=== PATIENT | female | born 1970 ===

== ENCOUNTER 2020-10-05 07:00 | Inpatient (IN) | payer OTHER ==
[~2020-10-05] VITALS: Ht 165.1 cm; Wt 77.6 kg
[2020-10-31] MEDS ORDERED: LANOXIN125 MCG PO (15:02)
[2020-10-31] MEDS ORDERED: SINGULAIR10 MG PO (15:03)
[2020-11-07] MEDS ORDERED: CEFADROXIL500 MG PO (06:45)
[2020-11-07] MEDS ORDERED: SIMETHICONE125 M1 PO (06:45)
[2020-11-07] MEDS ORDERED: POLY119PG PO (06:45)
[2020-11-07] MEDS ORDERED: INTEGRA PLUS C1 EACH PO (06:45)
[2020-11-07] MEDS ORDERED: IBUPROFEN800 MG PO (06:45)
[2020-11-07] MEDS ORDERED: NEURONTIN600 MG PO (06:45)
== END 2020-11-07 10:52 | disposition home or self-care (01) | DRG 743 ==
LOC: O/R 11-05 06:35 → OB/GYN 11-05 06:35
PROVIDERS: ADMIT Obstetrics & Gynecology; ATTEND Obstetrics & Gynecology
PROC: 0UT20ZZ Resection of Bilateral Ovaries, Open Approach (ICD-10-PCS; 2020-11-05)
PROC: 0UT70ZZ Resection of Bilateral Fallopian Tubes, Open Approach (ICD-10-PCS; 2020-11-05)
PROC: 0UT90ZZ Resection of Uterus, Open Approach (ICD-10-PCS; principal; 2020-11-05 09:45)
DX: D25.1 Intramural leiomyoma of uterus (principal); N72 Inflammatory disease of cervix uteri; N80.0 Endometriosis of uterus; N83.02 Follicular cyst of left ovary; N83.01 Follicular cyst of right ovary